=== PATIENT | female | born 1985 | race Two or more races ===

== ENCOUNTER 2019-07-11 10:09 | Emergency (ER) | payer OTHER ==
[~2019-07-11] VITALS: Ht 170.2 cm; Wt 96.8 kg
[2019-07-11] MEDS ORDERED: GUAI120L35 PO (10:29)
[2019-07-11] MEDS ORDERED: CETI1TAB7 PO (10:29)
[2019-07-11 10:30] VITALS: BP 138/86
--- NOTE | 2019-07-11 10:41 | PHYS DOC ---
Adult General Chief Complaint Chief Complaint: MULTIPLE COMPLAINTS HPI HPI Patient is a 34-year-old female presents with nasal congestion, rhinorrhea, cough, sore throat body aches. Patient reports chest wall pain after coughing. Pain is described as burning. Fevers been intermittent for the past 3 days. No wheezing, no shortness of breath. No other acute symptoms or complaints. Patient reports multiple recent upper respiratory tract illness exposures. Patient works in a school district. No other acute symptoms or complaints. Patient is a nonsmoker.[] Review of Systems Review of Systems Review of symptoms as per history of present illness. All other review symptoms are negative. All other systems were reviewed and found to be within normal limits, except as documented in this note. Physical Exam Physical Exam Constitutional: Well developed, well nourished, no acute distress, non-toxic appearance. [] HENT: Normocephalic, atraumatic, bilateral external ears normal, oropharynx moist, congestion, clear rhinorrhea l. [] Eyes: PERRLA, EOMI, conjunctiva normal, no discharge. [] Neck: Normal range of motion, no tenderness, supple. [] Cardiovascular:Heart rate regular rhythm, no murmur [] Lungs & Thorax: Bilateral breath sounds clear to auscultation [] Abdomen: Bowel sounds normal, soft. [] Skin: Warm, dry, no erythema, no rash. [] Back: No tenderness. [] Extremities: No tenderness, no edema. [] Neurologic: Alert and oriented X 3, normal motor function, normal sensory function, no focal deficits noted. [] Psychologic: Affect normal, judgement normal, mood normal. [] EKG EKG [] Radiology/Procedures Radiology/Procedures [] Course & Med Decision Making Course & Med Decision Making Pertinent Labs and Imaging studies reviewed. (See chart for details) [Influenza illness without respiratory compromise. Recommend supportive care with PCP follow-up. Return precautions reviewed.] Dragon Disclaimer Dragon Disclaimer This electronic medical record was generated, in whole or in part, using a voice recognition dictation system. Departure Departure: Impression: Primary Impression: Influenza-like illness Disposition: HOME, SELF-CARE Condition: GOOD Patient Instructions: Influenza, Adult, [id number] Additional Instructions: Please increase fluids and take ibuprofen for pain. Take newly prescribed medication as needed for additional relief. Follow-up with your PCP in 3-5 days for reevaluation if symptoms persist. Return to the ED if new or worsening symptoms Scripts Cetirizine Hcl/Pseudoephedrine (ZYRTEC-D TABLET) 1 Each Tab.er.12h 1 TAB PO BID, #20 TAB Prov: AYSHA YEPEZ DO 07/11/19 Guaifenesin/Codeine Phosphate (Codeine-Guaifen 10-100 mg/5 ml) 120 Ml Liquid 5 ML PO PRN Q6HRS PRN for cough and congestion MDD 20 Milliliter(s) for 6 Days, #120 ML 0 Refills Prov: AYSHA YEPEZ DO 07/11/19 AYSHA YEPEZ DO Jul 11, 2019 10:41
== END 2019-07-11 10:34 | disposition home or self-care (01) ==
LOC: ER 10:09
DX: J02.9 Acute pharyngitis, unspecified (principal); R07.89 Other chest pain; R09.81 Nasal congestion; J34.89 Other specified disorders of nose and nasal sinuses; R05 Cough; R50.9 Fever, unspecified
CPT/HCPCS: 99283